=== PATIENT | male | born 1955 | race Caucasian/White ===

== ENCOUNTER 2016-02-28 09:36 | Inpatient (IN) | payer BC ==
[2016-02-10 12:07] VITALS: BMI 31.0
--- NOTE | 2016-02-10 12:50 | PAT Medication Instructions ---
Service Date Feb 10, 2016. Current Home Medication List Fluvastatin (Lescol), 80 MG PO QAM Ibuprofen (Advil), 400 MG PO QID PRN for Pain Turmeric (Curcuma Longa) (Turmeric), 1 TAB PO QAM Valsartan (Diovan), 320 MG PO QAM Medication Instructions For Your Scheduled Surgery - Chck with surgeon for instructions: Ibuprofen (Advil), 400 MG PO QID PRN for Pain - Hold the following medications 2 weeks prior to surgery: Turmeric (Curcuma Longa) (Turmeric), 1 TAB PO QAM - Hold the following medications the morning of surgery: Valsartan (Diovan), 320 MG PO QAM - Take the following medications the morning of surgery with a sip of water: Fluvastatin (Lescol), 80 MG PO QAM If you have any questions please call us at [phone] (Carissa Trejo PA-C) or [phone] or [phone]
[2016-02-10 13:13] LABS: BASO % 0.2 %; BASO ABS # 0.01 K/uL (0-0.2); COMPLETE YES; EOS % 1.2 %; IG% 0.3 %; LYMPH % 25.8 %; LYMPH ABS # 1.55 K/uL (1.2-3.4); MEAN CELL VOLUME 87.5 fL (80-100); MEAN CORPUSCULAR HEMOGLOBIN 31.2 pg (25-34); MEAN CORPUSCULAR HGB CONC 35.7 g/dl (32-36); MEAN PLATELET VOLUME 9.9 fL (7.4-10.4); MONO % 8.3 %; NEUT % 64.2 %; PLATELET COUNT 125 K/uL (130-400); RED BLOOD COUNT 5.03 M/uL (4.7-6.1)
--- NOTE | 2016-02-10 13:14 | DIAGNOSTIC IMAGING REPORT ---
CHEST PREADMISSION(PA/LAT) CLINICAL HISTORY: PAT preoperative evaluation COMPARISON STUDY: 02/13/2012 FINDINGS: Mild stable cardiomegaly. Diaphragms smooth. Stable calcified granuloma mid left lung. Lungs otherwise are clear. IMPRESSION: No acute process. Electronically signed by: Saul Young M.D. 02/10/2016 1:13 PM
[2016-02-10 13:24] LABS: INR 1.1 (0.9-1.1); PROTHROMBIN TIME (PATIENT) 11.3 SECONDS (9.0-12.0)
[2016-02-10 13:35] LABS: URINE APPEARANCE CLEAR (CLEAR); URINE BILIRUBIN NEG (NEG); URINE COLOR YELLOW; URINE NITRITE NEG (NEG); URINE SPECIFIC GRAVITY 1.013 (1.000-1.030); UROBILINOGEN NEG (NEG); ZZUR CULT IF INDIC CLEAN CATCH NO
[2016-02-10 13:44] LABS: MANUAL MICROSCOPIC REQUIRED? NO; REVIEW REQ? NO
--- NOTE | 2016-02-24 08:56 | HISTORY & PHYSICAL EXAMINATION ---
DATE OF ADMISSION: 02/28/2016 CHIEF COMPLAINT: Left knee pain. HISTORY OF PRESENT ILLNESS: Mr. Gonzales is a 60-year-old male with a 3-year history of pain in his left knee. He rates his pain an 8/10. He has pain with his daily activities. He has limited standing and walking tolerance. Pain is worse with weightbearing. The patient has had injections, anti-inflammatories, and home exercise program without relief. He has failed conservative treatment and is scheduled for left knee replacement. PAST MEDICAL HISTORY: Hypertension, hypercholesterolemia. He denies heart disease, diabetes or DVT. PAST SURGICAL HISTORY: Left knee arthroscopy, right knee replacement, cholecystectomy. SOCIAL HISTORY: The patient drinks 6 drinks per week. He denies tobacco use. He lives in a 2-story home. 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 FAMILY HISTORY: Negative for DVT. MEDICATIONS: Valsartan 320 mg daily, fluvastatin 80 mg daily. ALLERGIES: None. REVIEW OF SYSTEMS: See HPI. Ten other systems reviewed, all negative. PHYSICAL EXAMINATION: VITAL SIGNS: Height 5 foot 6 inches. Weight 193 pounds. BMI 31. GENERAL: This is a well-developed, well-nourished male who is alert and oriented x3. Mood and affect are appropriate. HEENT: Normocephalic, atraumatic. Mucous membranes are moist and intact. NECK: Supple without lymphadenopathy. HEART: Regular rate and rhythm without murmurs, rubs or gallops. LUNGS: Clear to auscultation without wheezes or rhonchi. ABDOMEN: Soft and nontender. Bowel sounds are equal and active. EXTREMITIES: No ecchymosis, redness or warmth. Thigh and calf are soft and nontender. He has varus deformity. Range of motion is from 10-115 degrees with +2 laxity. He is neurovascularly intact, +5/5 strength. X-RAY EXAMINATION: AP and lateral views show joint space narrowing and osteophyte formation mainly in the medial compartment. IMPRESSION: Degenerative joint disease left knee. PLAN: The patient will be admitted for a left total knee arthroplasty. We will plan on aspirin for DVT prophylaxis. The patient's PCP is Dr. Mcgarry in [place]. He is doing outpatient physical therapy postoperatively.
[~2016-02-28] VITALS: Ht 167.6 cm; Wt 87.4 kg
[2016-02-28] VITALS (8 sets, daily range): BP systolic 114–149; BP diastolic 71–95; PULSE 77–100; TEMP 36.8–37.1; O2SAT 95–97; Ht 167.6 cm; Wt 87.4 kg
[~2016-02-28 09:36] MED LIST: ACETAMINOPHEN 500 MG TAB PO SCH; ATROPINE SULFATE 0.1 MG/ML 5ML SYR IV PRN; BUPIVACAINE 0.25% 30 ML VIAL ONE; BUPIVACAINE 0.5 % 5 MG/1 ML PF 10ML VIAL ONE; CEFAZOLIN 2000 MG/60 ML D5W 60 ML IV SCH; CeleBREX 200 MG CAP PO SCH; DEXAMETHASONE 4 MG TAB PO SCH; DVN/160 PO; EpHEDrine SULFATE INJ 50 MG/ML AMP IV PRN; FAMOTIDINE 20 MG TAB PO SCH; FENTANYL CITRATE INJ 50 MCG/1 ML 2 ML VIAL IV PRN; FLUV1CAP7 PO; GABAPENTIN 300 MG CAP PO SCH; IBUP-1050 PO; LACTATED RINGER'S 1000ML 1,000 ML IV SCH; LACTATED RINGER'S 1000ML 500 ML IV ONE; LACTATED RINGER'S 1000ML IV SCH; METOCLOPRAMIDE HCL 10 MG TAB PO SCH; ONDANSETRON INJ 2 MG/ML 2 ML VIAL IV PRN; ORTHO JOINT ANESTHETIC ONE; OXYCODONE HCL 10 MG TABCR (OXYCONTIN) PO SCH; POLYMYXIN B SULFATE 100,000 UNITS in NSS 100ML IR SCH; ROPIVACAINE 5MG/ML 30 ML 150 MG, BUPIVACAINE/EPINEPHR 0.5% MPF 30 ML, KETOROLAC TROMETH... INFIL SCH; TURM500T PO; VANCOMYCIN INJ 400 MG in NSS 100ML IR SCH
[2016-02-28] MEDS ORDERED: FENTANYL CITRATE INJ 50 MCG/1 ML 2 ML VIAL ONE (10:04)
[2016-02-28] MEDS ORDERED: MIDAZOLAM HCL 1 MG/ML 2ML VIAL ONE (10:04)
--- NOTE | 2016-02-28 10:26 | History & Physical Bridge Note ---
H&P Re-Evaluation Bridge Note: I have examined the patient, reviewed the History & Physical and in the interval since the performance of the History & Physical I have noted the following changes of clinical significance: No changes noted
[2016-02-28] MEDS: TRANEXAMIC ACID INJ 1,000 MG in SODIUM CHLORIDE 0.9% 100ML 100 ML IV SCH ×2 (10:50→16:39)
[2016-02-28] MEDS ORDERED: LIDOCAINE HCL 2% 2 ML VIAL (20MG/ML) ONE (12:13)
[2016-02-28] MEDS ORDERED: PROPOFOL IV EMULSION 10 MG/ML 20 ML VIAL IV ONE ×2 (12:13→13:25)
[2016-02-28] MEDS ORDERED: BUPIVACAINE/EPINEPHRINE 0.25% 1:200,000 30 ML VIAL INJ ONE (13:03)
[2016-02-28] MEDS ORDERED: BACITRACIN 50000 UNIT VIAL IR ONE (13:03)
[2016-02-28] MEDS ORDERED: POVIDONE-IODINE OP SOLN 30 ML BTL TOP ONE (13:03)
--- NOTE | 2016-02-28 13:05 | [facility] Post Operative Brief Note ---
Immediate Operative Summary Operative Date Feb 28, 2016. Pre-Operative Diagnosis Degenerative joint disease of left knee Post-Operative Diagnosis Same as preoperative diagnosis Procedure(s) Performed Left total knee arthroplasty Surgeon Dr Gianluca Marie Laboratory Specialist Surgeon(s) Jose Ortega PA-C Estimated Blood Loss 75 Findings DJD Specimens Left knee bone and tissue Complication(s) None Disposition Recovery Room / PACU
[2016-02-28] MEDS ORDERED: DiphenhydrAMINE HCL 50 MG/ML VIAL IV PRN (13:15)
[2016-02-28] MEDS ORDERED: ZOLPIDEM TARTRATE 5 MG TAB PO PRN (13:15)
[2016-02-28] MEDS ORDERED: MAGNESIUM HYDROXIDE SUSP 30 ML UDC PO PRN (13:15)
[2016-02-28] MEDS ORDERED: ALUMINUM/MAGNESIUM/SIMETH (MAALOX MAX) 30 ML UDC PO PRN (13:15)
[2016-02-28] MEDS ORDERED: SOD PHOSPHATE/SOD BIPHOSPHATE ENEMA 132 ML BTL PR PRN (13:15)
[2016-02-28] MEDS ORDERED: ONDANSETRON INJ 2 MG/ML 2 ML VIAL IV PRN (13:15)
[2016-02-28] MEDS ORDERED: METOCLOPRAMIDE HCL INJ 5 MG/ML 2 ML VIAL IV PRN (13:15)
[2016-02-28] MEDS ORDERED: BISACODYL 10 MG SUPP PR PRN (13:15)
[2016-02-28] MEDS ORDERED: TRAMADOL HCL 50 MG TAB PO PRN (13:15)
[2016-02-28] MEDS ORDERED: MoRPHine SULFATE 2 MG/ML CARP IV PRN (13:15)
--- NOTE | 2016-02-28 14:41 | DIAGNOSTIC IMAGING REPORT ---
LEFT KNEE 1 OR 2 VIEWS ROUTINE CLINICAL HISTORY: Postoperative evaluation. COMPARISON: None FINDINGS: Alignment of the total left knee arthroplasty is anatomic. There is no fracture or unexpected radiopaque foreign body. Drains are in place. IMPRESSION: Expected findings following total left knee arthroplasty Electronically signed by: Erik Melgar M.D. 02/28/2016 2:40 PM Dictated Date/Time: 02/28/2016 2:39 PM
--- NOTE | 2016-02-28 15:04 | Anesthesiology Progress Note ---
Anesthesia Post Op Note Date & Time Feb 28, 2016 at 15:03 Vital Signs Pain Intensity: 0 Vital Signs Past 12 Hours Date Time Temp Pulse Resp B/P Pulse Ox O2 Delivery O2 Flow Rate FiO2 02/28/16 14:13 82 10 02/28/16 14:13 82 10 02/28/16 14:13 81 10 122/78 96 02/28/16 14:13 81 10 96 02/28/16 14:08 88 23 120/71 97 02/28/16 14:08 88 23 120/71 97 02/28/16 14:08 86 23 02/28/16 14:08 86 23 02/28/16 14:03 84 20 02/28/16 14:03 84 20 02/28/16 14:03 83 20 115/76 97 02/28/16 14:03 83 20 115/76 97 02/28/16 13:58 88 9 02/28/16 13:58 88 9 112/76 97 02/28/16 13:58 88 9 02/28/16 13:58 88 9 112/76 97 02/28/16 13:54 91/ 02/28/16 13:54 91/ 02/28/16 13:53 88 19 98 02/28/16 13:53 88 19 98 02/28/16 13:53 87 19 02/28/16 13:53 87 19 02/28/16 13:48 86 11 02/28/16 13:48 87 11 125/73 97 02/28/16 13:48 86 11 02/28/16 13:48 87 11 125/73 97 02/28/16 13:43 89 23 02/28/16 13:43 36.6 90 16 107/75 99 Mask 10 02/28/16 13:43 90 23 109/52 98 02/28/16 13:43 89 23 02/28/16 13:43 90 23 109/52 98 02/28/16 09:54 36.9 86 20 145/95 96 Room Air Notes Mental Status: alert / awake / arousable, participated in evaluation Pt Amnestic to Procedure: Yes Nausea / Vomiting: adequately controlled Pain: adequately controlled Airway Patency, RR, SpO2: stable & adequate BP & HR: stable & adequate Hydration State: stable & adequate Neuraxial Anesthesia: was administered, sensory block is resolving Anesthetic Complications: no major complications apparent
[2016-02-28] MEDS ORDERED: INFLUENZA ADMINISTRATION CHARGE ONE (16:15)
[2016-02-28] MEDS ORDERED: INFLUENZA VIRUS QUAD VACCINE 0.5 ML SYR IM. ONE (16:15)
[2016-02-28] MEDS: D5W AND 1/2NSS + 20MEQ KCL 1,000 ML IV SCH (16:36)
--- NOTE | 2016-02-28 17:59 | OPERATIVE REPORT ---
DATE OF OPERATION: 02/28/2016 PREOPERATIVE DIAGNOSIS: Degenerative arthritis, left knee. POSTOPERATIVE DIAGNOSIS: Same. PROCEDURE: Left total knee patient matched implant. SURGEON: Dr. Marie. ESTIMATION MANAGER: EUGENIE Olea. ANESTHESIA: Spinal. BLOOD LOSS: 75 mL. TOURNIQUET TIME: 20 minutes at 275 mmHg. DRAINS: Hemovac x2. CULTURES: None. COMPLICATIONS: None. COMPONENTS USED: [email or web address]pomona Knee System: Femur size 5, tibia size 4 x 10, patella size 35. NOTE: EUGENIE Olea was present and assisted throughout due to the complicated nature of this case. He helped with preparation and set up, first assisted throughout and personally closed the capsule, subcutaneous and skin layers and applied the postoperative dressing. DESCRIPTION OF PROCEDURE: Following satisfactory spinal, the patient was supine. A tourniquet was placed. The lower extremity was prepared with ChloraPrep and draped sterilely. The tourniquet was not initially inflated. A midline incision was made with a median parapatellar arthrotomy. 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 To aid an exposure, the patella was prepared first. The ununited fragment was excised. The patella was freehand cut and sized for a size 35 button. Attention was turned to the femur. Using the patient matched femoral block, the distal femoral rotation and resection were set and completed. The 4-in-1 block was used to finish preparation of the femur. The patient matched tibial block was applied. Tibial resection was completed. The patella was freehand cut as noted before and soft tissue balancing was completed. A trial reduction showed good tensioning stability on the collateral ligaments, the patella tracked well throughout essentially a normal range of motion. The tourniquet was inflated for better cement technique. The trial components were removed. The capsule was prepared with the orthopedic cocktail and after irrigation, the components were cemented using Simplex G cement. When the cement had hardened, the knee was checked and showed good stability. After irrigation, 2 drains were placed. The tourniquet was deflated. The Betadine had been irrigated out. The arthrotomy was closed with a running suture of 0 V-Loc and reinforced with #1 Vicryl, subcutaneous tissues with 2-0 Vicryl and the skin with a running subcuticular stitch of 3-0 V-Loc. Dermabond and a dry dressing were applied. The patient was returned to his bed in stable condition. I attest to the content of the Intraoperative Record and any orders documented therein. Any exceptio ns are noted below.
[2016-02-28] MEDS: ACETAMINOPHEN 500 MG TAB PO SCH (18:15)
[2016-02-28] MEDS ORDERED: TRANEXAMIC ACID INJ 1,000 MG in SODIUM CHLORIDE 0.9% 100ML 100 ML IV SCH (19:00)
[2016-02-28] MEDS: CEFAZOLIN IV 2,000 MG in DEXTROSE 5% 50ML 50 ML IV SCH (19:55)
[2016-02-28] MEDS ORDERED: KETOROLAC TROMETHAMINE 30 MG/ML VIAL IV. PRN (20:00)
[2016-02-28] MEDS: ASPIRIN 81 MG ECTAB PO SCH (20:58)
[2016-02-28] MEDS: SENNA 8.6 MG TAB PO SCH (20:58)
[2016-02-28] MEDS: OXYCODONE HCL 10 MG TABCR (OXYCONTIN) PO SCH (20:58)
[2016-02-29] MEDS: D5W AND 1/2NSS + 20MEQ KCL 1,000 ML IV SCH ×2 (02:12→12:22)
[2016-02-29] MEDS: ACETAMINOPHEN 500 MG TAB PO SCH ×3 (02:12→17:59)
[2016-02-29 04:00] VITALS: BP 144/67; PULSE 78; TEMP 36.9; O2SAT 97
[2016-02-29] MEDS: CEFAZOLIN IV 2,000 MG in DEXTROSE 5% 50ML 50 ML IV SCH (04:44)
[2016-02-29 06:00] LABS: HEMATOCRIT 35.8 % (42-52); MEAN CELL VOLUME 86.5 fL (80-100); MEAN CORPUSCULAR HEMOGLOBIN 30.7 pg (25-34); MEAN CORPUSCULAR HGB CONC 35.5 g/dl (32-36); MEAN PLATELET VOLUME 10.1 fL (7.4-10.4); PLATELET COUNT 137 K/uL (130-400); RED BLOOD COUNT 4.14 M/uL (4.7-6.1); WHITE BLOOD COUNT 13.78 K/uL (4.8-10.8)
[2016-02-29 06:34] LABS: CALCIUM 8.2 mg/dl (8.5-10.1); CREATININE 0.99 mg/dl (0.60-1.40); POTASSIUM 4.3 mmol/L (3.5-5.1)
[2016-02-29 08:09] VITALS: BP 127/74; PULSE 84; TEMP 36.7; O2SAT 95
--- NOTE | 2016-02-29 08:11 | Anesthesiology Progress Note ---
Anesthesia Post Op Note Date & Time Feb 29, 2016 at 08:11 Vital Signs Vital Signs Past 12 Hours Date Time Temp Pulse Resp B/P Pulse Ox O2 Delivery O2 Flow Rate FiO2 02/29/16 08:09 36.7 84 18 127/74 95 Room Air 02/29/16 04:00 36.9 78 18 144/67 97 Room Air 02/28/16 23:45 36.8 77 16 149/72 96 Room Air 02/28/16 23:35 Room Air Notes Mental Status: alert / awake / arousable, participated in evaluation Pt Amnestic to Procedure: Yes Nausea / Vomiting: adequately controlled Pain: adequately controlled Airway Patency, RR, SpO2: stable & adequate BP & HR: stable & adequate Hydration State: stable & adequate Neuraxial Anesthesia: was administered, sensory block resolved Anesthetic Complications: no major complications apparent
--- NOTE | 2016-02-29 08:13 | Orthopedic Progress Note ---
Orthopedic Progress Note Date of Service Feb 29, 2016. Subjective Post OP Day: 1 Reports: feeling well, Denies: SOB, calf pain, chest pain, light headedness, nausea / vomiting Objective calves soft nontender, N/V intact, dressing C/D/I, A&O x3, toes mobile, hemovac drainage (620/190CC PER SHIFT) Date Time Temp Pulse Resp B/P Pulse Ox O2 Delivery O2 Flow Rate FiO2 02/29/16 08:09 36.7 84 18 127/74 95 Room Air 02/29/16 04:00 36.9 78 18 144/67 97 Room Air 02/28/16 23:45 36.8 77 16 149/72 96 Room Air 02/28/16 23:35 Room Air 02/28/16 20:00 97 Nasal Cannula 02/28/16 19:15 36.8 100 16 138/80 97 Nasal Cannula 2.0 02/28/16 18:25 91 18 136/84 02/28/16 17:26 36.9 79 18 120/79 97 2.0 02/28/16 16:41 77 16 128/78 96 Nasal Cannula 2.0 02/28/16 15:35 95 Nasal Cannula 2.0 02/28/16 15:35 Nasal Cannula 2.0 02/28/16 15:35 37.1 80 16 114/71 95 Nasal Cannula 2.0 02/28/16 15:28 107/60 02/28/16 15:26 83 15 97 02/28/16 15:26 83 15 02/28/16 15:24 108/60 02/28/16 15:21 79 15 97 02/28/16 15:21 79 15 02/28/16 15:19 107/66 02/28/16 15:16 82 24 97 02/28/16 15:16 82 24 02/28/16 15:13 116/75 02/28/16 15:11 84 16 02/28/16 15:11 83 16 96 02/28/16 15:10 80 27 97 02/28/16 15:10 82 27 02/28/16 15:08 114/69 02/28/16 15:05 81 15 02/28/16 15:05 36.6 88 18 114/69 97 Nasal Cannula 2 02/28/16 15:05 81 15 97 02/28/16 15:03 120/73 02/28/16 15:00 84 20 02/28/16 15:00 85 20 97 02/28/16 14:59 85 12 98 02/28/16 14:59 85 12 02/28/16 14:58 119/69 02/28/16 14:54 80 15 96 02/28/16 14:54 80 15 02/28/16 14:53 110/75 02/28/16 14:49 81 14 97 02/28/16 14:49 82 14 02/28/16 14:48 133/86 02/28/16 14:44 84 14 02/28/16 14:44 84 14 97 02/28/16 14:43 122/78 02/28/16 14:39 84 13 02/28/16 14:39 84 13 97 02/28/16 14:38 118/74 02/28/16 14:34 80 12 97 02/28/16 14:34 81 12 02/28/16 14:33 127/75 02/28/16 14:29 82 18 98 02/28/16 14:29 82 18 02/28/16 14:28 104/72 02/28/16 14:24 91 23 97 02/28/16 14:24 91 23 02/28/16 14:23 126/71 02/28/16 14:19 80 13 97 02/28/16 14:19 80 13 02/28/16 14:18 105/65 02/28/16 14:14 78 10 97 02/28/16 14:14 80 10 02/28/16 14:13 82 10 02/28/16 14:13 82 10 02/28/16 14:13 81 10 122/78 96 02/28/16 14:13 81 10 96 02/28/16 14:08 88 23 120/71 97 02/28/16 14:08 88 23 120/71 97 02/28/16 14:08 86 23 02/28/16 14:08 86 23 02/28/16 14:03 84 20 02/28/16 14:03 84 20 02/28/16 14:03 83 20 115/76 97 02/28/16 14:03 83 20 115/76 97 02/28/16 13:58 88 9 02/28/16 13:58 88 9 112/76 97 02/28/16 13:58 88 9 02/28/16 13:58 88 9 112/76 97 02/28/16 13:54 91/ 02/28/16 13:54 91/ 02/28/16 13:53 88 19 98 02/28/16 13:53 88 19 98 02/28/16 13:53 87 19 02/28/16 13:53 87 19 02/28/16 13:48 86 11 02/28/16 13:48 87 11 125/73 97 02/28/16 13:48 86 11 02/28/16 13:48 87 11 125/73 97 02/28/16 13:43 89 23 02/28/16 13:43 36.6 90 16 107/75 99 Mask 10 02/28/16 13:43 90 23 109/52 98 02/28/16 13:43 89 23 02/28/16 13:43 90 23 109/52 98 02/28/16 09:54 36.9 86 20 145/95 96 Room Air Laboratory Results 24 Hours: Test 02/29/16 05:38 Hematocrit 35.8 % Hemoglobin 12.7 g/dL Assessment & Plan Assessment: POD#1 SP LEFT TKA Inhouse Planning Pain Management: Celebrex, Oxycontin, PO Tylenol, Oxy IR DVT Prophylaxis: TEDs, SCDs, ASA Discharge Planning Discharge Planning: home with oppt (DC SUNDAY DUE TO HIGH HEMOVAC OUTPUT)
[2016-02-29] MEDS: FLUVASTATIN SODIUM 20 MG CAP PO SCH (08:52)
[2016-02-29] MEDS: MULTIVITAMIN TAB PO SCH (08:52)
[2016-02-29] MEDS: PANTOprazole SOD 40 MG TAB PO SCH (08:52)
[2016-02-29] MEDS: VALSARTAN 80 MG TAB PO SCH (08:52)
[2016-02-29] MEDS: ASPIRIN 81 MG ECTAB PO SCH ×2 (08:52→21:30)
[2016-02-29] MEDS: OXYCODONE HCL 10 MG TABCR (OXYCONTIN) PO SCH ×2 (08:55→21:32)
[2016-02-29 11:48] VITALS: BP 93/56; PULSE 73; TEMP 36.7; O2SAT 97
[2016-02-29 15:10] VITALS: BP 108/67; PULSE 72; TEMP 36.7; O2SAT 97
[2016-02-29 16:30] VITALS: O2SAT 97
[2016-02-29] MEDS: SENNA 8.6 MG TAB PO SCH (21:00)
[2016-02-29 23:05] VITALS: BP 124/75; PULSE 76; TEMP 37; O2SAT 95
[2016-03-01] MEDS: OXYCODONE HCL IR 5 MG TAB (IMMEDIATE RELEASE) PO PRN ×2 (00:35→07:43)
[2016-03-01] MEDS: ACETAMINOPHEN 500 MG TAB PO SCH ×2 (02:09→09:44)
[2016-03-01 06:06] VITALS: BP 112/75; PULSE 73; TEMP 36.6; O2SAT 97
[2016-03-01] MEDS: VALSARTAN 80 MG TAB PO SCH (07:39)
[2016-03-01] MEDS: PANTOprazole SOD 40 MG TAB PO SCH (07:39)
[2016-03-01] MEDS: FLUVASTATIN SODIUM 20 MG CAP PO SCH (07:39)
[2016-03-01] MEDS: MULTIVITAMIN TAB PO SCH (07:39)
[2016-03-01] MEDS: OXYCODONE HCL 10 MG TABCR (OXYCONTIN) PO SCH (07:43)
--- NOTE | 2016-03-01 08:06 | Orthopedic Progress Note ---
Orthopedic Progress Note Date of Service Mar 01, 2016. Subjective Post OP Day: 2 Reports: feeling well, pain controlled w PO medications, Denies: SOB, complaints , nausea / vomiting Objective calves soft nontender, incision C/D/I, A&O x3, toes mobile Date Time Temp Pulse Resp B/P Pulse Ox O2 Delivery O2 Flow Rate FiO2 03/01/16 06:06 36.6 73 16 112/75 97 Room Air 03/01/16 00:19 Room Air 02/29/16 23:05 37.0 76 18 124/75 95 Room Air 02/29/16 16:30 97 Room Air 02/29/16 15:10 36.7 72 18 108/67 97 Room Air 02/29/16 11:48 36.7 73 18 93/56 97 Room Air 02/29/16 08:09 36.7 84 18 127/74 95 Room Air Assessment & Plan Assessment: POD# 2 SP LEFT TKA Inhouse Planning Pain Management: Celebrex, Oxycontin, PO Tylenol, Oxy IR DVT Prophylaxis: TEDs, SCDs, ASA Discharge Planning Discharge Planning: home with oppt (DC SUNDAY DUE TO HIGH HEMOVAC OUTPUT) Pain Management: Celebrex, Oxycontin, PO Tylenol, Oxy IR DVT Prophylaxis: TEDs, ASA
[2016-03-01] MEDS ORDERED: ONDA8TAB6 PO (08:07)
[2016-03-01] MEDS ORDERED: ACET-1138 PO (08:07)
[2016-03-01] MEDS ORDERED: OXYSR10 PO (08:07)
[2016-03-01] MEDS ORDERED: ASPEC81 PO (08:07)
[2016-03-01] MEDS ORDERED: SNK PO (08:07)
[2016-03-01] MEDS ORDERED: RXC5 PO (08:07)
[2016-03-01] MEDS ORDERED: CLB200 PO (08:07)
--- NOTE | 2016-03-01 08:08 | Discharge Instructions ---
Discharge Instructions Admission Reason for Admission: Left Degenerative Arthritis Leg/Knee Discharge Discharge Diagnosis / Problem: sp left TKA Discharge Goals Goal(s): Decrease discomfort, Improve function, Increase independence Activity Recommendations Activity Limitations: per Instructions/Follow-up section . Instructions / Follow-Up Instructions / Follow-Up ACTIVITY RECOMMENDATIONS: SELF CARE INSTRUCTIONS AFTER TOTAL KNEE REPLACEMENT A. You may need to continue a physical therapy program after discharge from the hospital. There are several options available to you. Your doctor will assist you in selecting the best one for you. 1. An out-patient facility 2 to 3 times a week for therapy or home therapy. 2. Continue working on all exercises taught to you in the hospital. Your goals should be to increase bending of your knee to 90 degrees and beyond and to fully straighten your knee. B. You may progress at your own pace from walking with a walker or crutches to a cane; then to no assistive devices. C. Make walking a part of your daily routine. Be up as much as comfortable with rest periods throughout the day. Rest with leg elevation is very important. Use the ice wrap frequently for the first 3-4 weeks. D. There are no restrictions on activities. You may ride in a car, shop, participate in spiral spring winder and all social activities. E. Wear the long elastic stockings (PERLITA hose) 20 hours a day for 2 weeks after surgery. They can be removed several times a day for laundering and for a bath. F. You may shower, no tub baths until cleared by your doctor. SPECIAL CARE INSTRUCTIONS: VERY IMPORTANT TO READ AND REVIEW A. There are a few signs you need to watch for after you are home. Call [facility] if you notice any of the followin. Increased severe knee pain. Some pain is expected especially when you exercise. 2. Increased swelling in your leg or knee; pain or swelling of the calf muscle in either lower leg. 3. Any fluid drainage from the incision. 4. Shortness of breath or chest pain. B. Please call [facility] at if you have any concerns or questions about your operation or recovery. The doctor or his nurse will return your call promptly. C. You must take antibiotics before dental work, bladder, bowel or other surgery. Your doctor will provide you with a permanent care to carry describing this precaution. IMPORTANT: * REMEMBER TO TAKE ASPIRIN, 81 MG, TWICE DAILY FOR 4 WEEKS UNLESS OTHERWISE DIRECTED. THIS IS YOUR BLOOD THINNER. * HIGH RISK PATIENTS MAY BE PRESCRIBED A STRONGER BLOOD THINNER. THIS WILL BE PROVIDED AT DISCHARGE. * CALL IF INCREASED PAIN, REDNESS, DRAINAGE OR FEVER GREATER THAT 101. * WEAR PERLITA HOSE 20 HOURS PER DAY FOR 2 WEEKS. DERMABOND Prineo- This is a mesh tape dressing that is covered with glue. It should remain in place until the incision is properly healed, usually 10-14 days. This dressing is designed to naturally slough off. You may trim the excess mesh tape as it peels off. Incision may be briefly wet in a shower. Dry immediately by blotting with a clean, dry towel. Do not bath or swim until instructed by your doctor. Do not scratch, rub, or pick at the dressing. Do not apply any topical ointments or lotions until dressing is completely removed and/or instructed by your doctor. There may be a small piece of suture material at one end of your incision. Do not pull or trim this. If it is bothersome or catching on clothing, you may cover it with a band-aid. FOLLOW UP VISIT: If appointment is not already scheduled: Please call [facility] to make a follow-up appointment for 2 weeks after your surgery at . Current Hospital Diet Patient's current hospital diet: Regular Diet Discharge Diet Recommended Diet: Regular Diet Procedures Procedures Performed: Left total knee arthroplasty Pending Studies Studies pending at discharge: no Medical Emergencies . Who to Call and When: Medical Emergencies: If at any time you feel your situation is an emergency, please call 911 immediately. . Non-Emergent Contact Non-Emergency issues call your: Primary Care Provider . "Provider Documentation" section prepared by Hetal Quinn. VTE Core Measure Inpt VTE Proph given/why not?: Other Anticoagulation, T.E.D. Stockings, SCD's
[2016-03-01] MEDS: ASPIRIN 81 MG ECTAB PO SCH (09:44)
[2016-03-01 11:09] VITALS: BP 112/75; PULSE 73; TEMP 36.6; O2SAT 97
[2016-03-01] MEDS ORDERED: CeleBREX 200 MG CAP PO SCH (21:00)
--- NOTE | 2016-03-06 16:59 | DISCHARGE SUMMARY ---
DISCHARGE DIAGNOSIS: Degenerative joint disease left knee. SECONDARY DIAGNOSES: Hypertension, hypercholesterolemia. CONSULTS: None. COMPLICATIONS: None. PROCEDURES: Left total knee arthroplasty performed by Dr. Herbert Marie on 02/28/2016. BRIEF HISTORY: As dictated in the history and physical. HOSPITAL SUMMARY: The patient was admitted on the above date and had the above-noted surgery performed which he tolerated well. On the first postoperative day, patient was feeling well and had no complaints. Calves were soft, nontender, neurovascularly intact. Dressings clean, dry and intact. Toes were mobile. Vital signs were stable. He was afebrile. Hemoglobin was 12.7 and he was started on physical therapy protocol and continued on DVT prophylaxis and pain management. By his second postoperative day, he was feeling well, pain was controlled. Calves were soft and nontender and incision was benign. Toes were mobile. Vital signs were stable. He was afebrile. He was progressing well with his physical therapy and it was felt he could be discharged to home. For further review, please see chart. LAB AND X-RAY DATA: As per chart. DISCHARGE INSTRUCTIONS: The patient was discharged to home in satisfactory condition on 03/01/2016. DIET: Regular. ACTIVITY: Follow TK instruction sheets and special care instructions as noted. Follow up with Dr. Marie in 2 weeks from the day of surgery. DISCHARGE MEDICATIONS: Acetaminophen 1000 mg p.o. q. 8 hours, aspirin 81 mg p.o. b.i.d., Celebrex 200 mg p.o. b.i.d., Zofran 8 mg p.o. q. 8 hours p.r.n., OxyContin 10 mg p.o. q. 12 hours, oxycodone 5-10 mg p.o. q. 4 hours p.r.n., senna 17.2 mg p.o. at bedtime. Resume taking Lescol 80 mg p.o. q.a.m., turmeric 1 tab p.o. q.a.m., and valsartan 320 mg p.o. q.a.m. Stop taking ibuprofen.
== END 2016-03-01 11:34 | disposition home or self-care (01) | DRG 470 ==
LOC: ENRESERVTM → ENRESERVDT → C.ACU 09:36 → C.3E 09:46
PROVIDERS: ADMIT Orthopaedic Surgery; ATTEND Orthopaedic Surgery
PROC: 0SRD0J9 Replacement of Left Knee Joint with Synthetic Substitute, Cemented, Open Approach (ICD-10-PCS; principal; 2016-02-28 11:00)
DX: M17.12 Unilateral primary osteoarthritis, left knee (principal); I10 Essential (primary) hypertension; E78.00 Pure hypercholesterolemia, unspecified; I25.10 Atherosclerotic heart disease of native coronary artery without angina pectoris; E66.9 Obesity, unspecified; Z68.31 Body mass index [BMI] 31.0-31.9, adult; Z23 Encounter for immunization; Z96.651 Presence of right artificial knee joint; Z79.899 Other long term (current) drug therapy